=== PATIENT | female | born 1980 | race Two or more races ===

== ENCOUNTER 2019-08-04 09:38 | Emergency (ER) | payer MEDICAID, OTHER ==
[~2019-08-04] VITALS: Ht 162.6 cm; Wt 65.8 kg
[2019-08-04 10:16] LABS: Urine Bacteria NONE SEEN /hpf (None Seen); Urine Blood TRACE /uL (Negative); Urine Mucus FEW (None Seen); Urine Specific Gravity 1.024 (1.001-1.035); Urine WBC 1 /hpf (0 - 5)
[2019-08-04 12:09] VITALS: BP 108/59
== END 2019-08-04 13:17 | disposition home or self-care (01) ==
LOC: ER 09:38
DX: K64.4 Residual hemorrhoidal skin tags (principal)
CPT/HCPCS: 81001